=== PATIENT | female | born 1995 | race Caucasian/White ===

== ENCOUNTER 2018-05-05 20:10 | Emergency (ER) | payer OTHER ==
[2018-05-05] MEDS ORDERED: LORazepam 0.5 MG Tab PO ONE ×2 (20:11→21:04)
[2018-05-05 21:08] LABS: CHLORIDE,CL 101 mmol/L (101-111); SODIUM,NA 136 mmol/L (135-145)
--- NOTE | 2018-05-05 21:24 | EDM.PDOC ---
ED HPI GENERAL MEDICAL PROBLEM - General Chief Complaint: General Stated Complaint: RAPID HEATRATE AND ANXIETY [id number] Time Seen by Provider: 05/05/18 20:28 Source of Information: Reports: Patient History Limitations: Reports: No Limitations - History of Present Illness INITIAL COMMENTS - FREE TEXT/NARRATIVE: This 22 yo female patient reports to the ED with increased anxiety and sensations of heart palpitations since 1430 today. The patient reports that she does not know of any events leading up to increased anxiety. The patient reports that she is on Prozac and has been taking it for the past 3 weeks, but does not think it is doing any good. The patient reports that she has not had a follow-up with her primary care facility yet. The patient reports that she did drink last night, but denies drug use. The patient reports she has not had increased caffeine intake today or energy drinks. The patient does not believe that she is (is on control). The patient reports that she has not been sick lately. The patient denies any nausea/vomiting or diarrhea. Onset: Today Onset Date: 05/05/18 Onset Time: 14:30 Duration: Constant Location: Reports: Chest, Generalized Quality: Reports: Other Severity: Moderate Improves with: Reports: None Worsens with: Reports: None Associated Symptoms: Reports: No Other Symptoms - Related Data Allergies Allergy/AdvReac Type Severity Reaction Status Date / Time No Known Allergies Allergy Verified 05/05/18 20:26 Home Meds: Home Meds FLUoxetine [PROzac] 10 mg PO DAILY 05/05/18 [History] Past Medical History - Past Surgical History Other Musculoskeletal Surgeries/Procedures:: bileteral foot surgery Social & Family History - Tobacco Use Smoking Status *Q: Never Smoker Second Hand Smoke Exposure: No - Caffeine Use Caffeine Use: Reports: None - Alcohol Use Date of Last Drink: 05/04/18 ED ROS GENERAL - Review of Systems Review Of Systems: ROS reveals no pertinent complaints other than HPI. ED EXAM, GENERAL - Physical Exam Exam: See Below Exam Limited By: No Limitations General Appearance: Alert, WD/WN, Anxious, Thin Eye Exam: Bilateral Eye: EOMI, Normal Inspection, PERRL Ears: Normal External Exam, Normal Canal, Hearing Grossly Normal, Normal TMs Nose: Normal Inspection, Normal Mucosa, No Blood Throat/Mouth: Normal Inspection, Normal Lips, Normal Teeth, Normal Gums, Normal Oropharynx, Normal Voice, No Airway Compromise Head: Atraumatic, Normocephalic Neck: Normal Inspection, Supple, Non-Tender, Full Range of Motion Respiratory/Chest: No Respiratory Distress, Lungs Clear, Normal Breath Sounds, No Accessory Muscle Use, Chest Non-Tender Cardiovascular: Normal Peripheral Pulses, Regular Rate, Rhythm, No Edema, No Gallop, No JVD, No Murmur, No Rub GI/Abdominal: Normal Bowel Sounds, Soft, Non-Tender, No Organomegaly, No Distention, No Abnormal Bruit, No Mass (Female) Exam: Deferred Rectal (Female) Exam: Deferred Back Exam: Normal Inspection, Full Range of Motion, NT Extremities: Normal Inspection, Normal Range of Motion, Non-Tender, Normal Capillary Refill, No Pedal Edema Neurological: Alert, Oriented, CN II-XII Intact, Normal Cognition, Normal Gait, Normal Reflexes, No Motor/Sensory Deficits Psychiatric: Anxious Skin Exam: Warm, Dry, Intact, Normal Color, No Rash Lymphatic: No Adenopathy Course - Vital Signs Last Recorded V/S: Last Vital Signs Temp 36.9 C 05/05/18 20:17 Pulse 98 05/05/18 20:17 Resp 18 05/05/18 20:17 BP 138/84 05/05/18 20:17 Pulse Ox 100 05/05/18 20:17 - Orders/Labs/Meds Orders: Active Orders 24 hr Category Date Time Status DRUG SCREEN URINE BIORAD [URCHEM] Stat Lab 05/05/18 20:34 Ordered HCG QUALITATIVE,URINE [URCHEM] Stat Lab 05/05/18 20:34 Ordered UA W/MICROSCOPIC [URIN] Stat Lab 05/05/18 20:34 Ordered Labs: Laboratory Tests 05/05/18 05/05/18 05/05/18 Range/Units 20:40 20:40 20:50 WBC 9.3 (5.0-10.0) 10^3/uL RBC 4.36 (4.2-5.4) 10^6/uL Hgb 13.6 (12.0-16.0) g/dL Hct 39.9 (37.0-47.0) % MCV 91.5 (80-100) fL MCH 31.2 (27.0-34.0) pg MCHC 34.1 (33.0-35.0) g/dL Plt Count 293 (150-450) 10^3/uL Neut % (Auto) 81.2 H (42.2-75.2) % Lymph % (Auto) 13.3 L (20.5-50.1) % [place] % (Auto) 5.0 (2-8) % Eos % (Auto) 0.3 L (1.0-3.0) % Baso % (Auto) 0.2 (0.0-1.0) % Sodium 136 (135-145) mmol/L Potassium 3.9 (3.6-5.0) mmol/L Chloride 101 (101-111) mmol/L Carbon Dioxide 25.0 (21.0-31.0) mmol/L Anion Gap 13.9 BUN 6 L (7-18) mg/dL Creatinine 0.6 (0.6-1.3) mg/dL Est Cr Clr Drug Dosing 119.06 mL/min Estimated GFR (MDRD) > 60 BUN/Creatinine Ratio 10.00 Glucose 86 (74-105) mg/dL Calcium 9.4 (8.4-10.2) mg/dl Total Bilirubin 0.7 (0.2-1.0) mg/dL AST 29 (10-42) IU/L ALT 22 (10-60) IU/L Alkaline Phosphatase 53 (42-121) IU/L Total Protein 7.1 (6.7-8.2) g/dl Albumin 4.4 (3.2-5.5) g/dl Globulin 2.7 Albumin/Globulin Ratio 1.63 Urine Color Light yellow (YELLOW) Urine Appearance Clear (CLEAR) Urine pH 6.5 (5.0-9.0) Ur Specific Willis <= 1.005 (1.005-1.030) Urine Protein Negative (NEGATIVE) Urine Glucose (UA) Negative (NEGATIVE) Urine Ketones Negative (NEGATIVE) Urine Occult Blood Trace-lysed H (NEGATIVE) Urine Nitrite Negative (NEGATIVE) Urine Bilirubin Negative (NEGATIVE) Urine Urobilinogen 0.2 (0.2-1.0) mg/dL Ur Leukocyte Esterase Trace H (NEGATIVE) Urine RBC 0-5 /HPF Urine WBC 0-5 (0-5/HPF) /HPF Ur Epithelial Cells Occasional /HPF Urine Bacteria Few (0-FEW/HPF) /HPF Urine HCG, Qual Urine Opiates Screen (NEGATIVE) Ur Oxycodone Screen (NEGATIVE) Urine Methadone Screen (NEGATIVE) Ur Barbiturates Screen (NEGATIVE) U Tricyclic Antidepress (NEGATIVE) Ur Phencyclidine Scrn (NEGATIVE) Ur Amphetamine Screen (NEGATIVE) U Methamphetamines Scrn (NEGATIVE) Urine MDMA Screen (NEGATIVE) U Benzodiazepines Scrn (NEGATIVE) Urine Cocaine Screen (NEGATIVE) U Marijuana (THC) Screen (NEGATIVE) 05/05/18 05/05/18 Range/Units 20:50 20:50 WBC (5.0-10.0) 10^3/uL RBC (4.2-5.4) 10^6/uL Hgb (12.0-16.0) g/dL Hct (37.0-47.0) % MCV (80-100) fL MCH (27.0-34.0) pg MCHC (33.0-35.0) g/dL Plt Count (150-450) 10^3/uL Neut % (Auto) (42.2-75.2) % Lymph % (Auto) (20.5-50.1) % [place] % (Auto) (2-8) % Eos % (Auto) (1.0-3.0) % Baso % (Auto) (0.0-1.0) % Sodium (135-145) mmol/L Potassium (3.6-5.0) mmol/L Chloride (101-111) mmol/L Carbon Dioxide (21.0-31.0) mmol/L Anion Gap BUN (7-18) mg/dL Creatinine (0.6-1.3) mg/dL Est Cr Clr Drug Dosing mL/min Estimated GFR (MDRD) BUN/Creatinine Ratio Glucose (74-105) mg/dL Calcium (8.4-10.2) mg/dl Total Bilirubin (0.2-1.0) mg/dL AST (10-42) IU/L ALT (10-60) IU/L Alkaline Phosphatase (42-121) IU/L Total Protein (6.7-8.2) g/dl Albumin (3.2-5.5) g/dl Globulin Albumin/Globulin Ratio Urine Color (YELLOW) Urine Appearance (CLEAR) Urine pH (5.0-9.0) Ur Specific Willis (1.005-1.030) Urine Protein (NEGATIVE) Urine Glucose (UA) (NEGATIVE) Urine Ketones (NEGATIVE) Urine Occult Blood (NEGATIVE) Urine Nitrite (NEGATIVE) Urine Bilirubin (NEGATIVE) Urine Urobilinogen (0.2-1.0) mg/dL Ur Leukocyte Esterase (NEGATIVE) Urine RBC /HPF Urine WBC (0-5/HPF) /HPF Ur Epithelial Cells /HPF Urine Bacteria (0-FEW/HPF) /HPF Urine HCG, Qual Negative Urine Opiates Screen Negative (NEGATIVE) Ur Oxycodone Screen Negative (NEGATIVE) Urine Methadone Screen Negative (NEGATIVE) Ur Barbiturates Screen Negative (NEGATIVE) U Tricyclic Antidepress Negative (NEGATIVE) Ur Phencyclidine Scrn Negative (NEGATIVE) Ur Amphetamine Screen Negative (NEGATIVE) U Methamphetamines Scrn Negative (NEGATIVE) Urine MDMA Screen Negative (NEGATIVE) U Benzodiazepines Scrn Negative (NEGATIVE) Urine Cocaine Screen Negative (NEGATIVE) U Marijuana (THC) Screen Negative (NEGATIVE) Meds: Medications Discontinued Medications Generic Name Dose Route Start Last Admin Trade Name Freq PRN Reason Stop Dose Admin Lorazepam 0.5 mg 05/05/18 21:04 05/05/18 21:08 Ativan PO 05/05/18 21:05 0.5 mg ONETIME ONE Administration Departure - Departure Time of Disposition: 22:01 Disposition: Home, Self-Care 01 Condition: Fair Clinical Impression: Anxiety - Discharge Information Instructions: Panic Attack, [id number] Forms: ED Department Discharge Care Plan Goals: The patient was advised of the examination and lab results during the visit. The patient as given an oral dose of Ativan while in the ED with some decrease in symptoms. The patient was discharged with Ativan (0.5 mg) #2 to take 1 by mouth every 6 hours as needed for anxiety. If the patient has any additional symptoms or concerns, the patient should follow-up with her primary care facility or return to the emergency department. - My Orders Last 24 Hours: My Active Orders 05/05/18 20:34 DRUG SCREEN URINE BIORAD [URCHEM] Stat HCG QUALITATIVE,URINE [URCHEM] Stat UA W/MICROSCOPIC [URIN] Stat - Assessment/Plan Last 24 Hours: My Active Orders 05/05/18 20:34 DRUG SCREEN URINE BIORAD [URCHEM] Stat HCG QUALITATIVE,URINE [URCHEM] Stat UA W/MICROSCOPIC [URIN] Stat
[2018-05-05] MEDS ORDERED: LORazepam 0.5 MG Tab ONE (22:08)
== END 2018-05-05 22:16 | disposition home or self-care (01) ==
LOC: DL.ED 20:10
DX: F41.9 Anxiety disorder, unspecified (principal)
CPT/HCPCS: 36415; 80053; 80305; 81001; 81025; 85025; 99284; A9270

== ENCOUNTER → 2019-05-19 | Outpatient (CLI) | payer BC | LOC: DL.MRI 09:38 | PROVIDERS: ATTEND Nurse Practitioner Family | DX: M25.562 Pain in left knee (principal); M25.462 Effusion, left knee; M22.42 Chondromalacia patellae, left knee; M67.864 Other specified disorders of tendon, left knee | CPT/HCPCS: 73721-LT ==

== ENCOUNTER 2021-03-26 17:04 | Inpatient (IN) | payer BC ==
[2021-03-26] MEDS: Lactated Ringers 1,000 ML IV SCH (18:00)
[2021-03-26] MEDS ORDERED: Misoprostol 400 MCG (4 X 100 MCG TAB) RECTAL PRN (18:01)
[2021-03-26] MEDS ORDERED: Ondansetron 4 MG/2 ML SDV IVPUSH PRN (18:01)
[2021-03-26] MEDS ORDERED: Methylergonovine 0.2 MG/1 ML Amp IM PRN (18:01)
[2021-03-26] MEDS ORDERED: Sodium Chloride 0.9% 10 ML Syringe FLUSH PRN (18:01)
[2021-03-26] MEDS ORDERED: Tranexamic Acid 1,000 MG in Sodium Chloride 0.9% 100 ML IV PRN (18:01)
[2021-03-26] MEDS ORDERED: Butorphanol 2 MG/ML SDV IVPUSH PRN (18:01)
[2021-03-26] MEDS ORDERED: fentaNYL 100 MCG/2 ML SDV IVPUSH PRN (18:01)
[2021-03-26] MEDS ORDERED: Lactated Ringers 1,000 ML IV ONE (18:01)
[2021-03-26] MEDS ORDERED: Carboprost Tromethamine 250 MCG/1 ML Amp IM PRN (18:01)
[2021-03-26] MEDS ORDERED: Lidocaine 1% 30 ML SDV INJECT PRN (18:01)
[2021-03-26] MEDS ORDERED: Nalbuphine 10 MG/1 ML Vial IV PRN (18:04)
[2021-03-26] MEDS ORDERED: Nalbuphine 10 MG/1 ML Vial IM PRN (18:04)
[2021-03-26] MEDS ORDERED: Magnesium Sulfate/Water 4 GM/100 ML BAG IV ONE (18:53)
[2021-03-26] MEDS ORDERED: EPINEPHrine 1 MG/1 ML Amp ONE ×2 (19:00→19:35)
[2021-03-26] MEDS ORDERED: Sodium Chloride 0.9% 20 ML SDV ONE (19:00)
[2021-03-26] MEDS ORDERED: Sodium Bicarbonate 4.2% 2.5 MEQ/5 ML SDV ONE ×2 (19:00→19:35)
[2021-03-26] MEDS ORDERED: fentaNYL 100 MCG/2 ML SDV ITHECAL ONE (19:00)
[2021-03-26] MEDS ORDERED: Magnesium Sulfate/Water 4 GM/100 ML BAG ONE (19:05)
[2021-03-26] MEDS ORDERED: fentaNYL 100 MCG/2 ML SDV ONE (19:34)
[2021-03-26] MEDS: Magnesium Sulfate/Water 20 GM/500 ML BAG IV SCH (19:35)
--- NOTE | 2021-03-26 20:00 | PCM.SN.2 ---
- Free Text/Narrative Note: Intrathecal. Sitting position, sterile prep and drape. 1% lidocaine w bicarb for skinwheal to L2 L3 interspace. Introducer, 24 ga pencan x 1. Pos CSF, neg heme, neg parasthesia. 0.1 ml pf 1:1000 epi, 20 mcg pf sufenta, 30 mcg pf fentanyl, 0.4 ml pf NS and 6 mg of 0.75% pf Marcaine injected after CSF aspiration. Pt to L lateral position. Procedure time 1929 to 1999
--- NOTE | 2021-03-26 22:24 | HP ---
PRIMARY OB PROVIDER: Dr. Zimmerman. HISTORY OF PRESENT ILLNESS/CHIEF COMPLAINT: Elizabeth Wilcox is a 25-year- old female, G1, P0 at 40 weeks 2 days gestation based upon ultrasound on 10/27/2020 who presents in active labor. She reports that she felt regular contractions starting around 5 p.m. She has lower abdominal pain and back pain associated with her contractions. She denies any visual changes, headaches, fevers, chills, nausea, vomiting, chest pain, shortness of breath, increasing abdominal pain, paresthesias, weakness. She has had bilateral lower leg swelling during this . PRENTAL LABS: Blood group type is A positive with a negative antibody screen. Serology (RPR/syphilis) is nonreactive. Rubella immune. Hepatitis B surface antigen was negative. Hepatitis C nonreactive. HIV negative. Gonorrhea and chlamydia are negative. GBS status negative. PAST MEDICAL HISTORY: Anxiety. PAST SURGICAL HISTORY: Noncontributory. PRIOR TO ADMISSION MEDICATIONS: Iron supplements 325, vitamins daily. ALLERGIES: Denies any current allergies. SOCIAL HISTORY: Denies tobacco, alcohol, drug use during . FAMILY HISTORY: Noncontributory. REVIEW OF SYSTEMS: See HPI for pertinent positives and negatives. PHYSICAL EXAMINATION: Admission Vitals Signs: T afebrile, P 76, BP 170/103, respirating on room air. General Appearance: Alert, well appearing, no apparent distress. Lungs: Clear to auscultation. No wheezes. Symmetric air entry. Heart: Regular rate and rhythm, no murmurs. Neurologic: Cranial nerves 2 through 12 grossly intact. Negative Babinski sign bilaterally. Absent clonus present in bilateral ankles. [employer]ing [employer] strength normal bilaterally. FHT: Category 1, baseline 150, accelerations present, decelerations absent. [place]: Rhonda regularly every 4 to 5 minutes. Pelvic: Initial pelvic exam was 4 cm dilated, station +1, thin cervix. Extremities: Mild edema present bilaterally. LABORATORY DATA: Hematology: WBC 13.5, RBC 4.11, HGB 12.9, HCT 38.1, platelet count 174. Chemistry: BUN 12, creatinine 0.70, estimated GFR greater than 60, uric acid 4.8, magnesium 1.7, AST 21, ALT 23, LDH 190. Urine protein 100, urine glucose negative, urine ketones negative, urine nitrites negative. Urine random total protein 45.6, protein/creatinine ratio 2982.3. Serology: COVID negative. Artifical rupture of membranes: Meconium-stained fluid present upon artificial rupture of membranes. Around 200 mL of meconium-stained fluid was visualized. ASSESSMENT AND PLAN: Elizabeth Wilcox is a 25-year-old, G1, P0 female at 40 weeks 2 days gestation, admitted for active labor. She has increased blood pressures ranging in the 180 systolics and 100s diastolics. With concerns for elevated blood pressures and protein in the urine, diagnosis of preeclampsia with severe features is made. We will start magnesium per protocol for seizure prophylaxis. For pain, the patient would like intrathecal. In the meantime, 20 mg IM of Nubain will be given. We will continue to monitor blood pressures and concerning physical exam findings. We will continue to monitor progression of labor. STARLA SantiagoII [facility] /[id number] Agree with student assessment and plan. Patient was examined by me, and the assessment and plan are per my direction. Any changes above were made to reflect my observations and opinions. Dr. Izzy Zimmerman [facility]
[2021-03-27] MEDS: Oxytocin/Normal Saline 30 UNIT/500 ML BAG IV SCH ×2 (00:51→01:30)
[2021-03-27] MEDS ORDERED: Morphine 2 MG/ML SYRINGE ONE (00:55)
[2021-03-27] MEDS ORDERED: ceFAZolin 2 GM in Sodium Chloride 0.9% 50 ML IV STA (01:39)
[2021-03-27] MEDS ORDERED: Oxytocin 10 Units/1 ML SDV IM PRN (02:20)
[2021-03-27] MEDS ORDERED: Benzocaine/Menthol 20%-0.5% Spray 56 GM Canister TOP PRN (02:20)
[2021-03-27] MEDS ORDERED: Simethicone 80 MG Tab.Chew PO PRN (02:20)
--- NOTE | 2021-03-27 02:54 | PCM.DEL ---
L & D Note - General Info Date of Service: 03/27/21 Mother's Due Date: 03/24/21 - Delivery Note Labor: Spontaneous Delivery Outcome: Livebirth Infant Delivery Method: Spontaneous Vaginal Delivery-Single Infant Delivery Mode: Vacuum Extraction Presentation: Vertex (Asynclitic) Nuchal Cord: None Anesthesia Type: Intrathecal Amniotic Fluid Description: Meconium Stained Episiotomy Type: None Laceration: 2nd Degree, Vaginal (Left) Suture size: 3-0 Placenta: Manual Removal, Retained Cord: 3 Vessels Estimated Blood Loss: 850 Resuscitation Needed: Yes [place]: Bulb Syringe, Stimulated, Warmed Provider: Izzy Zimmerman Post Delivery Events: Retained Placenta Delivery Comments (Free Text/Narrative):: 25-year-old at 40w2d presented to L&D in active labor. Upon arrival, patient's blood pressure was noted to be significantly elevated. PIH labs were significant for PCR of 2.89. Remainder of labs were unremarkable. Patient was started on IV magnesium sulfate. She was noted to be 4/90/0. AROM was performed for moderate amount of meconium stained fluid. Nubain and an intrathecal were given for pain control. Patient progressed appropriately through the first stage of labor. at 2230, she was noted to have an anterior lip. A trial push was done, and the lip was successfully reduced. Patient pushed with excellent progression initially; however after about 45 minutes of pushing, it was determined that baby was in OP position. A trial of pushing on patient's left side was attempted with little change. Due to patient's excellent pushing and baby's +2 station, the decision was made to proceed with vacuum assisted vaginal delivery. Low-profile Kiwi vacuum was applied. Good movement of the head was noted. There was one pop-off. Due to baby's position, a mushroom Kiwi was then used; however, the vacuum could not maintain suction and slid off the head three times without a true pop-off. Patient then pushed for 3 contractions without use of the vacuum with good progression of the head. Then progression again slowed so the low-profile was reapplied for another 3 contractions. A second pop-off occurred. head was noted to be at the perineum during contractions and pushing but would receded back into the vagina in between contractions. Dr. Carol Rowley was consulted for a 2nd opinion and agreed with continuing with vacuum delivery. Patient continued to push with 3 contractions with the low-profile vacuum in place. There was a 3rd pop-off; however, as the head was partially out of the canal, the decision was made to proceed with VAVD. A tight band of tissue near the opening of the vagina was cut during the next contraction. Patient pushed well and delivered a viable female with Apgars of 8 and 9 at 1 and 5 minutes respectively. Baby was placed on the mother's chest. Cord was clamped x2 and cut. Cord blood was collected. A left vaginal laceration was repaired with a running, locked suture. Due to another patient emergency, I stepped out of the room and left Waleska Wallace MS3 to remove the placenta. After about 15 minutes, I was able to return to the patient's room. The placenta had not showed any signs of releasing from the uterus. Continued cord traction and aggressive uterine massage was performed with no success. At the 20 minute tristan, an internal uterine exam was performed and the placenta was noted to be anterior and adherent to the uterine wall. The edges of the placenta were "teased" from the uterine wall. The placenta was manually removed and was noted to be incomplete. Repeat manual intrauterine exam was performed and another large piece of placenta and membranes was manually removed. Residual retained membranes were felt on repeat examination. Dr. Rowley was called back to the exam room for possible bedside D&C. Patient was given 2 mg IV morphine. Manual removal of the placental fragments using 2 opened 4x4 gauze sponges was performed. Patient was given TXA and hemabate as well as bolusing the pitocin. Uterus appeared clean from retained placenta on repeat examination, and uterine tone improved significantly. Patient tolerated the above procedures well. Vacuum Extractor Progress Note - Alternative Labor Strategies Considered Alternative Labor Strategies Considered:: Reports: Yes Strategies Considered:: Reports: Contraction Intensity Adequate, Position Changes Used to Facilitate Rotation & Descent, Empty Bladder, Rest Indications Considered:: Reports: Yes Indications:: Reports: Prolonged 2nd Stage, Shortening of 2nd Stage for Maternal Benefit - Patient Prepared Patient Prepared:: Reports: Yes Informed Consent:: Reports: Verbal Risks: Reports: Yes Risks Include:: Reports: Laceration, Maternal Injury Anesthesia/Analgesia Adequate:: Reports: Yes - Probability of Success High Probability of Success:: Reports: Yes Weight Estimated:: Reports: AGA Patient Diabetic:: Reports: No Pelvis Adequate:: Reports: Yes Position:: OP Station:: 2-3+ - Application Time Type of Vacuum Used:: Reports: Low profile, Cup: Gilman type Vacuum Extraction: Successful - Exit Strategy Exit strategy available:: Reports: Yes and resuscitation teams readily available:: Reports: Yes - General Info Date of Service: 03/27/21 - Patient Data Vitals - Most Recent: Last Vital Signs Temp 37.1 C 03/26/21 20:00 Pulse 90 03/26/21 21:00 Resp 16 03/26/21 21:00 BP 140/85 03/26/21 21:00 Pulse Ox Weight - Most Recent: 68.946 kg I&O - Last 24 Hours: Intake & Output 03/26/21 03/26/21 03/27/21 14:59 22:59 06:59 Intake Total 100 Balance 100 Lab Results Last 24 Hours: Laboratory Results - last 24 hr 03/26/21 03/26/21 03/26/21 Range/Units 17:50 18:01 18:01 WBC 13.5 H (5.0-10.0) 10^3/uL RBC 4.11 L (4.2-5.4) 10^6/uL Hgb 12.9 (12.0-16.0) g/dL Hct 38.1 (37.0-47.0) % MCV 92.7 (80-100) fL MCH 31.4 (27.0-34.0) pg MCHC 33.9 (33.0-35.0) g/dL Plt Count 174 D (150-450) 10^3/uL BUN 12 (7-18) mg/dL Creatinine 0.70 (0.55-1.02) mg/dL Est Cr Clr Drug Dosing TNP Estimated GFR (MDRD) > 60 Uric Acid 4.8 (2.6-6.0) mg/dL Magnesium (1.8-2.4) mg/dL AST 21 (15-37) U/L ALT 23 (14-59) U/L Lactate Dehydrogenase 190 (81-234) U/L Urine Color (YELLOW) Urine Appearance (CLEAR) Urine pH (5.0-9.0) Ur Specific [address] (1.005-1.030) Urine Protein (NEGATIVE) Urine Glucose (UA) (NEGATIVE) Urine Ketones (NEGATIVE) Urine Occult Blood (NEGATIVE) Urine Nitrite (NEGATIVE) Urine Bilirubin (NEGATIVE) Urine Urobilinogen (0.2-1.0) mg/dL Ur Leukocyte Esterase (NEGATIVE) Ur Random Creatinine (No establ ref range) mg/dL U Random Total Protein (0.0-11.9) mg/dL Protein/Creatinin Ratio (<150.0) mg/g SARS-CoV-2 RNA (ALEXI) Negative (NEGATIVE) 03/26/21 03/26/21 03/26/21 Range/Units 18:01 18:17 18:17 WBC (5.0-10.0) 10^3/uL RBC (4.2-5.4) 10^6/uL Hgb (12.0-16.0) g/dL Hct (37.0-47.0) % MCV (80-100) fL MCH (27.0-34.0) pg MCHC (33.0-35.0) g/dL Plt Count (150-450) 10^3/uL BUN (7-18) mg/dL Creatinine (0.55-1.02) mg/dL Est Cr Clr Drug Dosing Estimated GFR (MDRD) Uric Acid (2.6-6.0) mg/dL Magnesium 1.7 L (1.8-2.4) mg/dL AST (15-37) U/L ALT (14-59) U/L Lactate Dehydrogenase (81-234) U/L Urine Color Light yellow (YELLOW) Urine Appearance Slightly cloudy (CLEAR) Urine pH 6.5 (5.0-9.0) Ur Specific [address] 1.015 (1.005-1.030) Urine Protein 100 H (NEGATIVE) Urine Glucose (UA) Negative (NEGATIVE) Urine Ketones Negative (NEGATIVE) Urine Occult Blood Large H (NEGATIVE) Urine Nitrite Negative (NEGATIVE) Urine Bilirubin Negative (NEGATIVE) Urine Urobilinogen 0.2 (0.2-1.0) mg/dL Ur Leukocyte Esterase Negative (NEGATIVE) Ur Random Creatinine 15.29 (No establ ref range) mg/dL U Random Total Protein 45.6 H (0.0-11.9) mg/dL Protein/Creatinin Ratio 2982.3 H (<150.0) mg/g SARS-CoV-2 RNA (ALEXI) (NEGATIVE) Med Orders - Current: Current Medications Acetaminophen (Acetaminophen 325 Mg Tab) 650 mg PO Q4H PRN PRN Reason: Pain (Mild 1-3) and fever Benzocaine/Menthol (Benzocaine/Menthol 20%-0.5% [place] 56 Gm Canister) 0 gm TOP Q4H PRN PRN Reason: Perineal comfort measures Carboprost Tromethamine (Carboprost Tromethamine 250 Mcg/1 Ml Amp) 250 mcg IM ASDIRECTED PRN PRN Reason: HEMORRHAGE Docusate Sodium (Docusate Sodium 100 Mg Cap) 100 mg PO BID PRN PRN Reason: Constipation Lactated Ringer's (Ringers, Lactated) 1,000 mls @ 125 mls/hr IV ASDIRECTED [facility] Last Admin: 03/26/21 18:00 Dose: 125 mls/hr Documented by: Tranexamic Acid 1,000 mg/ (Sodium Chloride) 110 mls @ 660 mls/hr IV ONETIME PRN PRN Reason: Bleeding Last Admin: 03/27/21 00:55 Dose: 660 mls/hr Documented by: Oxytocin/Sodium Chloride (Pitocin In Ns 30 Unit/500 Ml) 30 unit in 500 mls @ 2 mls/hr IV TITRATE [facility]; Protocol Last Admin: 03/27/21 01:30 Dose: 125 munits/min, 125 mls/hr Documented by: Magnesium Sulfate (Magnesium Sulfate In Water 20 Gm/500 Ml) 20 gm in 500 mls @ 50 mls/hr IV ASDIRECTED [facility] Last Admin: 03/26/21 19:35 Dose: 50 mls/hr Documented by: Ibuprofen (Ibuprofen 800 Mg Tab) 800 mg PO Q8H PRN PRN Reason: Pain Methylergonovine Maleate (Methylergonovine 0.2 Mg/1 Ml Amp) 0.2 mg IM ASDIRECTED PRN PRN Reason: Hemorrhage Misoprostol (Misoprostol 400 Mcg (4 X 100 Mcg Tab)) 800 mcg RECTAL ASDIRECTED PRN PRN Reason: Hemorrhage Ondansetron HCl (Ondansetron 4 Mg/2 Ml Sdv) 4 mg IVPUSH Q4H PRN PRN Reason: Nausea/Vomiting Oxytocin (Oxytocin 10 Units/1 Ml Sdv) 10 unit IM ONETIME PRN PRN Reason: Bleeding Prenat Multivit/Pathology Laboratory Aides Teacher/Iron/Folic Ac ( Multivitamin With Calcium/Folic Acid/Iron Tab) 1 each PO DAILY TIMO Simethicone (Simethicone 80 Mg Tab.Chew) 80 mg PO Q4H PRN PRN Reason: Gas Sodium Chloride (Sodium Chloride 0.9% 10 Ml Syringe) 10 ml FLUSH ASDIRECTED PRN PRN Reason: Keep Vein Open Discontinued Medications Butorphanol Tartrate (Butorphanol 2 Mg/Ml Sdv) 0.5 mg IVPUSH Q3H PRN PRN Reason: Pain Epinephrine HCl (Epinephrine 1 Mg/1 Ml Amp) Confirm Administered Dose 1 mg .ROUTE .STK-MED ONE Stop: 03/26/21 19:36 Fentanyl (Fentanyl 100 Mcg/2 Ml Sdv) 100 mcg IVPUSH Q1H PRN PRN Reason: Pain (moderate 4-6) Fentanyl (Fentanyl 100 Mcg/2 Ml Sdv) Confirm Administered Dose 100 mcg .ROUTE .STK-MED ONE Stop: 03/26/21 19:35 Lactated Ringer's (Ringers, Lactated) 1,000 mls @ 999 mls/hr IV BOLUS ONE Stop: 03/26/21 19:01 Last Admin: 03/26/21 20:10 Dose: 50 mls/hr Documented by: Magnesium Sulfate (Magnesium Sulfate In Water 4 Gm/100 Ml) 4 gm in 100 mls @ 300 mls/hr IV ONETIME ONE Stop: 03/26/21 19:12 Last Admin: 03/26/21 20:20 Dose: Not Given Documented by: Magnesium Sulfate (Magnesium Sulfate In Water 4 Gm/100 Ml) Confirm Administered Dose 4 gm in 100 mls @ as directed .ROUTE .STReally [employer]-MED ONE Stop: 03/26/21 19:06 Last Admin: 03/26/21 19:12 Dose: 300 mls/hr Documented by: Cefazolin Sodium 2 gm/ Sodium (Chloride) 50 mls @ 100 mls/hr IV ONETIME STA Stop: 03/27/21 02:08 Lidocaine HCl (Lidocaine 1% 30 Ml Sdv) 30 ml INJECT ASDIRECTED PRN PRN Reason: Perineal Repair Morphine Sulfate (Morphine 2 Mg/Ml Syringe) Confirm Administered Dose 2 mg .ROUTE .STK-MED ONE Stop: 03/27/21 00:56 Last Admin: 03/27/21 00:57 Dose: 2 mg Documented by: Nalbuphine HCl (Nalbuphine 10 Mg/1 Ml Vial) 20 mg IM Q3H PRN PRN Reason: Pain Last Admin: 03/26/21 19:26 Dose: 20 mg Documented by: Nalbuphine HCl (Nalbuphine 10 Mg/1 Ml Vial) 10 mg IV Q3H PRN PRN Reason: Pain Sodium Bicarbonate (Sodium Bicarbonate 4.2% 2.5 Meq/5 Ml Sdv) Confirm Administered Dose 2.5 meq .ROUTE .STK-MED ONE Stop: 03/26/21 19:36 Sufentanil Citrate (Sufentanil 50 Mcg/1 Ml Amp) Confirm Administered Dose 50 mcg .ROUTE .STK-MED ONE Stop: 03/26/21 19:36 - Problem List & Annotations (1) Severe pre-eclampsia SNOMED Code(s): 39236950 Code(s): O14.10 - SEVERE PRE-ECLAMPSIA, UNSPECIFIED TRIMESTER Status: Acute Current Visit: Yes (2) Retained placenta or membranes SNOMED Code(s): 470722008 Code(s): O73.1 - RETAINED PORTIONS OF PLACENTA AND MEMBRANES, W/O HEMORRHAGE Status: Acute Current Visit: Yes (3) care in third trimester SNOMED Code(s): 426578581, 16723243, 40058943, 522792824, 388758033 Code(s): Z34.93 - ENCNTR FOR SUPRVSN OF NORMAL PREG, UNSP, THIRD TRIMESTER Status: Acute Current Visit: Yes (4) Anxiety SNOMED Code(s): 08155786 Code(s): F41.9 - ANXIETY DISORDER, UNSPECIFIED Status: Acute Current Visit: No (5) hemorrhage SNOMED Code(s): 85493093 Code(s): O72.1 - OTHER IMMEDIATE HEMORRHAGE Status: Acute Current Visit: Yes (6) Vacuum-assisted vaginal delivery SNOMED Code(s): 90714713161731115 Code(s): Z37.9 - OUTCOME OF DELIVERY, UNSPECIFIED Status: Acute Current Visit: Yes - Problem List Review Problem List Initiated/Reviewed/Updated: Yes - My Orders Last 24 Hours: My Active Orders 03/26/21 18:01 Patient Status [ADT] Routine Notify Provider Vital Signs OB [RC] ASDIRECTED Acetaminophen [TylenoL] 650 mg PO Q4H PRN Carboprost Tromethamine [Hemabate DS] 250 mcg IM ASDIRECTED PRN Methylergonovine [Methergine] 0.2 mg IM ASDIRECTED PRN Ondansetron [Zofran] 4 mg IVPUSH Q4H PRN Sodium Chloride 0.9% [Saline Flush] 10 ml FLUSH ASDIRECTED PRN Tranexamic Acid [Cyklokapron] 1,000 mg Sodium Chloride 0.9% [Normal Saline] 100 ml IV ONETIME miSOPROStoL [Cytotec] 800 mcg RECTAL ASDIRECTED PRN Saline Lock Insert [OM.PC] Routine Resuscitation Status Routine 03/26/21 18:15 Lactated Ringers [Ringers, Lactated] 1,000 ml IV ASDIRECTED Oxytocin/Normal Saline [Pitocin in NS 30 UNIT/500 ML] 30 unit in 500 ml IV TITRATE 03/26/21 18:51 Bedrest [RC] ASDIRECTED Seizure Precautions [OM.PC] Stat 03/26/21 19:00 Blood Pressure [OM.PC] Q30M Deep Tendon Reflexes [WOMSER] Q2H 03/26/21 19:15 Magnesium Sulfate/Water [Magnesium Sulfate in Water 20 GM/500 ML] 20 gm in 500 ml IV 50 mls/hr 03/26/21 19:30 Blood Pressure [OM.PC] Q30M 03/26/21 20:00 Blood Pressure [OM.PC] Q30M 03/26/21 20:30 Blood Pressure [OM.PC] Q30M 03/26/21 21:00 Blood Pressure [OM.PC] Q30M Deep Tendon Reflexes [WOMSER] Q2H 03/26/21 21:30 Blood Pressure [OM.PC] Q30M 03/26/21 22:00 Blood Pressure [OM.PC] Q30M 03/26/21 22:30 Blood Pressure [OM.PC] Q30M 03/26/21 23:00 Blood Pressure [OM.PC] Q30M Deep Tendon Reflexes [WOMSER] Q2H 03/26/21 23:30 Blood Pressure [OM.PC] Q30M 03/27/21 00:00 Blood Pressure [OM.PC] Q30M 03/27/21 00:30 Blood Pressure [OM.PC] Q30M 03/27/21 01:00 Blood Pressure [OM.PC] Q30M Deep Tendon Reflexes [WOMSER] Q2H 03/27/21 01:30 Blood Pressure [OM.PC] Q30M 03/27/21 02:00 Blood Pressure [OM.PC] Q30M 03/27/21 02:20 Up ad Maggie [RC] ASDIRECTED Vital Signs [RC] PFP Consult to Field Attendant [CONS] Routine Benzocaine/Menthol [Dermoplast Pain Relief [place]] See Dose Instructions TOP Q4H PRN Docusate Sodium [Colace] 100 mg PO BID PRN Ibuprofen [Motrin] 800 mg PO Q8H PRN Oxytocin [Pitocin] 10 unit IM ONETIME PRN Simethicone 80 mg PO Q4H PRN Assess Lochia [WOMSER] Per Unit Routine Assess Uterine Involution [WOMSER] Per Unit Routine Breast Pump [WOMSER] Per Unit Routine Ice Therapy [OM.PC] Per Unit Routine Perineal Care [OM.PC] Per Unit Routine Sitz Bath [OM.PC] Per Unit Routine 03/27/21 02:30 Blood Pressure [OM.PC] Q30M 03/27/21 03:00 MAGNESIUM [CHEM] Q8H Blood Pressure [OM.PC] Q30M Deep Tendon Reflexes [WOMSER] Q2H 03/27/21 03:30 Blood Pressure [OM.PC] Q30M 03/27/21 04:00 Blood Pressure [OM.PC] Q30M 03/27/21 04:30 Blood Pressure [OM.PC] Q30M 03/27/21 05:00 Blood Pressure [OM.PC] Q30M Deep Tendon Reflexes [WOMSER] Q2H 03/27/21 05:30 Blood Pressure [OM.PC] Q30M 03/27/21 06:00 Blood Pressure [OM.PC] Q30M 03/27/21 06:30 Blood Pressure [OM.PC] Q30M 03/27/21 07:00 CBC W/O DIFF,HEMOGRAM [HEME] Routine Blood Pressure [OM.PC] Q30M Deep Tendon Reflexes [WOMSER] Q2H 03/27/21 Breakfast Regular Diet [DIET] 03/27/21 07:30 Blood Pressure [OM.PC] Q30M 03/27/21 08:00 Ferrous Sulfate 325 mg PO WITHBREAKFAST Blood Pressure [OM.PC] Q30M 03/27/21 08:30 Blood Pressure [OM.PC] Q30M 03/27/21 09:00 Vit with Ca/FA/Iron [ Plus Iron] 1 each PO DAILY Blood Pressure [OM.PC] Q30M Deep Tendon Reflexes [WOMSER] Q2H 03/27/21 09:30 Blood Pressure [OM.PC] Q30M 03/27/21 10:00 Blood Pressure [OM.PC] Q30M 03/27/21 10:30 Blood Pressure [OM.PC] Q30M 03/27/21 11:00 MAGNESIUM [CHEM] Q8H Blood Pressure [OM.PC] Q30M Deep Tendon Reflexes [WOMSER] Q2H 03/27/21 11:30 Blood Pressure [OM.PC] Q30M 03/27/21 12:00 Blood Pressure [OM.PC] Q30M 03/27/21 12:30 Blood Pressure [OM.PC] Q30M 03/27/21 13:00 Blood Pressure [OM.PC] Q30M Deep Tendon Reflexes [WOMSER] Q2H 03/27/21 13:30 Blood Pressure [OM.PC] Q30M 03/27/21 14:00 Blood Pressure [OM.PC] Q30M 03/27/21 14:30 Blood Pressure [OM.PC] Q30M 03/27/21 15:00 Blood Pressure [OM.PC] Q30M Deep Tendon Reflexes [WOMSER] Q2H 03/27/21 15:30 Blood Pressure [OM.PC] Q30M 03/27/21 16:00 Blood Pressure [OM.PC] Q30M 03/27/21 16:30 Blood Pressure [OM.PC] Q30M 03/27/21 17:00 Blood Pressure [OM.PC] Q30M Deep Tendon Reflexes [WOMSER] Q2H 03/27/21 17:30 Blood Pressure [OM.PC] Q30M 03/27/21 18:00 Blood Pressure [OM.PC] Q30M 03/27/21 18:01 RED BLOOD CELLS LP [BBK] Routine TYPE AND SCREEN [BBK] Routine 03/27/21 18:30 Blood Pressure [OM.PC] Q30M 03/27/21 19:00 MAGNESIUM [CHEM] Q8H Blood Pressure [OM.PC] Q30M Deep Tendon Reflexes [WOMSER] Q2H - Assessment Assessment:: 25-year-old now , s/p VAVD and manual removal of placenta at 40w3d - Plan Plan:: 1. Initiate routine orders 2. Continue magnesium sulfate for 24 hours after delivery. Continue magnesium levels every 8 hours. 3. 2 grams IV Ancef for infection prophylaxis after multiple manual explorations of uterus 4. Check CBC 6 hours after delivery due to hemorrhage. Restart oral iron. Type and screen ordered 5. Anticipate discharge on 03/29/2021 Izzy Zimmerman MD
[2021-03-27] MEDS: Magnesium Sulfate/Water 20 GM/500 ML BAG IV SCH ×2 (05:06→15:13)
[2021-03-27] MEDS: Ibuprofen 800 MG Tab PO PRN ×3 (05:07→23:47)
[2021-03-27] MEDS: Acetaminophen 325 MG Tab PO PRN ×3 (05:08→20:10)
[2021-03-27] MEDS ORDERED: Witch Hazel Medicated Pads 100/Jar TOP PRN (06:02)
[2021-03-27] MEDS: Prenatal Multivitamin with Calcium/Folic Acid/Iron Tab PO SCH (09:05)
[2021-03-27] MEDS: Docusate Sodium 100 MG Cap PO PRN ×2 (09:05→20:10)
[2021-03-27] MEDS: Ferrous Sulfate 325 MG Tab PO SCH (09:05)
[2021-03-27] MEDS: Lactated Ringers 1,000 ML IV SCH (15:16)
[2021-03-27] MEDS: Labetalol 100 MG Tab PO SCH ×2 (21:03→21:33)
--- NOTE | 2021-03-28 08:32 | PCM.PNPP ---
- General Info Date of Service: 03/28/21 Admission Dx/Problem (Free Text): Spontaneous term labor Pre-eclampsia with severe features Subjective Update: Patient is feeling better since stopping the magnesium drip at 0100. She does report a new onset headache this morning. She denies dizziness, fever, chills, nausea, vomiting, chest pain, difficulty breathing, upper abdominal pain, weakness, paraesthesias. She has a quevedo catheter in place. Has not ambulated. Tolerating PO. Lochia is decreasing. Her pain is being controlled. Functional Status: Reports: Pain Controlled, Tolerating Diet, Urinating - Review of Systems General: Reports: No Symptoms HEENT: Reports: No Symptoms Pulmonary: Reports: No Symptoms Cardiovascular: Reports: No Symptoms Gastrointestinal: Reports: No Symptoms Skin: Reports: No Symptoms Neurological: Reports: Headache. Denies: Dizziness, Numbness, Tingling, Weakness - General Info Date of Service: 03/28/21 - Patient Data Vital Signs - Most Recent: Last Vital Signs Temp 99.3 F 03/28/21 08:00 Pulse 90 03/28/21 08:00 Resp 18 03/28/21 08:00 BP 138/84 03/28/21 08:00 Pulse Ox 97 03/28/21 08:00 Weight - Most Recent: 152 lb I&O - Last 24 Hours: Intake & Output 03/27/21 03/28/21 03/28/21 22:59 06:59 14:59 Output Total 2000 3000 Balance -2000 -3000 Lab Results - Last 24 Hours: Laboratory Results - last 24 hr 03/27/21 03/27/21 03/28/21 Range/Units 11:28 19:35 06:15 WBC 9.7 (5.0-10.0) 10^3/uL RBC 2.20 L (4.2-5.4) 10^6/uL Hgb 6.9 L D (12.0-16.0) g/dL Hct 21.2 L (37.0-47.0) % MCV 96.4 (80-100) fL MCH 31.4 (27.0-34.0) pg MCHC 32.5 L (33.0-35.0) g/dL Plt Count 146 L (150-450) 10^3/uL BUN (7-18) mg/dL Creatinine (0.55-1.02) mg/dL Est Cr Clr Drug Dosing mL/min Estimated GFR (MDRD) Uric Acid (2.6-6.0) mg/dL Magnesium 5.6 H 5.3 H (1.8-2.4) mg/dL AST (15-37) U/L ALT (14-59) U/L Lactate Dehydrogenase (81-234) U/L Urine Color (YELLOW) Urine Appearance (CLEAR) Urine pH (5.0-9.0) Ur Specific [place] (1.005-1.030) Urine Protein (NEGATIVE) Urine Glucose (UA) (NEGATIVE) Urine Ketones (NEGATIVE) Urine Occult Blood (NEGATIVE) Urine Nitrite (NEGATIVE) Urine Bilirubin (NEGATIVE) Urine Urobilinogen (0.2-1.0) mg/dL Ur Leukocyte Esterase (NEGATIVE) 03/28/21 03/28/21 03/28/21 Range/Units 06:15 06:15 07:52 WBC (5.0-10.0) 10^3/uL RBC (4.2-5.4) 10^6/uL Hgb (12.0-16.0) g/dL Hct (37.0-47.0) % MCV (80-100) fL MCH (27.0-34.0) pg MCHC (33.0-35.0) g/dL Plt Count (150-450) 10^3/uL BUN 7 (7-18) mg/dL Creatinine 0.64 (0.55-1.02) mg/dL Est Cr Clr Drug Dosing 118.81 mL/min Estimated GFR (MDRD) > 60 Uric Acid 5.2 (2.6-6.0) mg/dL Magnesium (1.8-2.4) mg/dL AST 36 (15-37) U/L ALT 22 (14-59) U/L Lactate Dehydrogenase 281 H (81-234) U/L Urine Color Yellow (YELLOW) Urine Appearance Slightly cloudy (CLEAR) Urine pH 7.5 (5.0-9.0) Ur Specific [place] 1.015 (1.005-1.030) Urine Protein Negative (NEGATIVE) Urine Glucose (UA) Negative (NEGATIVE) Urine Ketones Negative (NEGATIVE) Urine Occult Blood Trace-lysed H (NEGATIVE) Urine Nitrite Negative (NEGATIVE) Urine Bilirubin Negative (NEGATIVE) Urine Urobilinogen 0.2 (0.2-1.0) mg/dL Ur Leukocyte Esterase Trace H (NEGATIVE) Med Orders - Current: Current Medications Acetaminophen (Acetaminophen 325 Mg Tab) 650 mg PO Q4H PRN PRN Reason: Pain (Mild 1-3) and fever Last Admin: 03/27/21 20:10 Dose: 650 mg Documented by: Benzocaine/Menthol (Benzocaine/Menthol 20%-0.5% [place] 56 Gm Canister) 0 gm TOP Q4H PRN PRN Reason: Perineal comfort measures Last Admin: 03/27/21 05:07 Dose: 1 spray Documented by: Carboprost Tromethamine (Carboprost Tromethamine 250 Mcg/1 Ml Amp) 250 mcg IM ASDIRECTED PRN PRN Reason: HEMORRHAGE Docusate Sodium (Docusate Sodium 100 Mg Cap) 100 mg PO BID PRN PRN Reason: Constipation Last Admin: 03/27/21 20:10 Dose: 100 mg Documented by: Ferrous Sulfate (Ferrous Sulfate 325 Mg Tab) [facility] Last Admin: 03/27/21 09:05 Dose: 325 mg Documented by: Lactated Ringer's (Ringers, Lactated) 1,000 mls @ 125 mls/hr IV ASDIRECTED [facility] Last Admin: 03/27/21 15:16 Dose: 125 mls/hr Documented by: Tranexamic Acid 1,000 mg/ (Sodium Chloride) 110 mls @ 660 mls/hr IV ONETIME PRN PRN Reason: Bleeding Last Admin: 03/27/21 00:55 Dose: 660 mls/hr Documented by: Oxytocin/Sodium Chloride (Pitocin In Ns 30 Unit/500 Ml) 30 unit in 500 mls @ 2 mls/hr IV TITRATE [facility]; Protocol Last Admin: 03/27/21 01:30 Dose: 125 munits/min, 125 mls/hr Documented by: Magnesium Sulfate (Magnesium Sulfate In Water 20 Gm/500 Ml) 20 gm in 500 mls @ 50 mls/hr IV ASDIRECTED [facility] Last Admin: 03/27/21 15:13 Dose: 50 mls/hr Documented by: Ibuprofen (Ibuprofen 800 Mg Tab) 800 mg PO Q8H PRN PRN Reason: Pain Last Admin: 03/27/21 23:47 Dose: 800 mg Documented by: Labetalol HCl (Labetalol 100 Mg Tab) 200 mg PO BID [facility] Last Admin: 03/27/21 21:33 Dose: Not Given Documented by: Methylergonovine Maleate (Methylergonovine 0.2 Mg/1 Ml Amp) 0.2 mg IM ASDIRECTED PRN PRN Reason: Hemorrhage Misoprostol (Misoprostol 400 Mcg (4 X 100 Mcg Tab)) 800 mcg RECTAL ASDIRECTED PRN PRN Reason: Hemorrhage Ondansetron HCl (Ondansetron 4 Mg/2 Ml Sdv) 4 mg IVPUSH Q4H PRN PRN Reason: Nausea/Vomiting Oxytocin (Oxytocin 10 Units/1 Ml Sdv) 10 unit IM ONETIME PRN PRN Reason: Bleeding Prenat Multivit/[place]/Iron/Folic Ac ( Multivitamin With Calcium/Folic Acid/Iron Tab) 1 each PO DAILY [facility] Last Admin: 03/27/21 09:05 Dose: 1 each Documented by: Simethicone (Simethicone 80 Mg Tab.Chew) 80 mg PO Q4H PRN PRN Reason: Gas Sodium Chloride (Sodium Chloride 0.9% 10 Ml Syringe) 10 ml FLUSH ASDIRECTED PRN PRN Reason: Keep Vein Open Witch Kathleen (Witch Kathleen Medicated Pads 100/Jar) 1 pad TOP ASDIRECTED PRN PRN Reason: Perineal Comfort Measure Last Admin: 03/27/21 09:06 Dose: 1 pad Documented by: Discontinued Medications Butorphanol Tartrate (Butorphanol 2 Mg/Ml Sdv) 0.5 mg IVPUSH Q3H PRN PRN Reason: Pain Epinephrine HCl (Epinephrine 1 Mg/1 Ml Amp) Confirm Administered Dose 1 mg .ROUTE .STK-MED ONE Stop: 03/26/21 19:36 Last Admin: 03/27/21 08:58 Dose: Not Given Documented by: Fentanyl (Fentanyl 100 Mcg/2 Ml Sdv) 100 mcg IVPUSH Q1H PRN PRN Reason: Pain (moderate 4-6) Fentanyl (Fentanyl 100 Mcg/2 Ml Sdv) Confirm Administered Dose 100 mcg .ROUTE .STK-MED ONE Stop: 03/26/21 19:35 Last Admin: 03/27/21 08:58 Dose: Not Given Documented by: Lactated Ringer's (Ringers, Lactated) 1,000 mls @ 999 mls/hr IV BOLUS ONE Stop: 03/26/21 19:01 Last Admin: 03/26/21 20:10 Dose: 50 mls/hr Documented by: Magnesium Sulfate (Magnesium Sulfate In Water 4 Gm/100 Ml) 4 gm in 100 mls @ 300 mls/hr IV ONETIME ONE Stop: 03/26/21 19:12 Last Admin: 03/26/21 20:20 Dose: Not Given Documented by: Magnesium Sulfate (Magnesium Sulfate In Water 4 Gm/100 Ml) Confirm Administered Dose 4 gm in 100 mls @ as directed .ROUTE .STK-MED ONE Stop: 03/26/21 19:06 Last Admin: 03/26/21 19:12 Dose: 300 mls/hr Documented by: Cefazolin Sodium 2 gm/ Sodium (Chloride) 50 mls @ 100 mls/hr IV ONETIME STA Stop: 03/27/21 02:08 Last Admin: 03/27/21 02:27 Dose: 100 mls/hr Documented by: Lidocaine HCl (Lidocaine 1% 30 Ml Sdv) 30 ml INJECT ASDIRECTED PRN PRN Reason: Perineal Repair Morphine Sulfate (Morphine 2 Mg/Ml Syringe) Confirm Administered Dose 2 mg .ROUTE .STK-MED ONE Stop: 03/27/21 00:56 Last Admin: 03/27/21 00:57 Dose: 2 mg Documented by: Nalbuphine HCl (Nalbuphine 10 Mg/1 Ml Vial) 20 mg IM Q3H PRN PRN Reason: Pain Last Admin: 03/26/21 19:26 Dose: 20 mg Documented by: Nalbuphine HCl (Nalbuphine 10 Mg/1 Ml Vial) 10 mg IV Q3H PRN PRN Reason: Pain Sodium Bicarbonate (Sodium Bicarbonate 4.2% 2.5 Meq/5 Ml Sdv) Confirm Administered Dose 2.5 meq .ROUTE .STK-MED ONE Stop: 03/26/21 19:36 Last Admin: 03/27/21 08:58 Dose: Not Given Documented by: Sufentanil Citrate (Sufentanil 50 Mcg/1 Ml Amp) Confirm Administered Dose 50 mcg .ROUTE .STK-MED ONE Stop: 03/26/21 19:36 Last Admin: 03/27/21 08:58 Dose: Not Given Documented by: - Interaction Infant Disposition, : [place] at Bedside Infant Interaction: Holding Infant Feeding: Continues to Breastfeed Support Person: - Recovery Exam Fundal Tone: Firm Fundal Level: 2 Fingerbreadths Below Umbilicus Fundal Placement: Midline Lochia Amount: Moderate Lochia Color: Rubra/Red Perineum Description: Edematous Episiotomy/Laceration: Approximated Bladder Status: Nonpalpable Urinary Elimination: Indwelling Catheter - Exam General: Alert, Oriented HEENT: Pupils Equal Lungs: Clear to Auscultation, Normal Respiratory Effort Cardiovascular: Regular Rate, Regular Rhythm GI/Abdominal Exam: Normal Bowel Sounds, Soft, Non-Tender, No Organomegaly, No Distention, No Abnormal Bruit, No Mass, Pelvis Stable Extremities: Normal Inspection, Normal Range of Motion, Non-Tender, No Pedal Edema, Normal Capillary Refill Skin: Warm, Dry, Intact Neurological: No New Focal Deficit (Babinski negative. [place] strength equal. CN 2-12 grossly intact) Psy/Mental Status: Alert, Normal Affect, Normal Mood - Problem List & Annotations (1) Anemia affecting SNOMED Code(s): 59350478 Code(s): O99.019 - ANEMIA COMPLICATING , UNSPECIFIED TRIMESTER Status: Acute Current Visit: Yes (2) hemorrhage SNOMED Code(s): 47788938 Code(s): O72.1 - OTHER IMMEDIATE HEMORRHAGE Status: Acute Current Visit: Yes (3) care in third trimester SNOMED Code(s): 494249447, 55905141, 86513278, 683182406, 690750004 Code(s): Z34.93 - ENCNTR FOR SUPRVSN OF NORMAL PREG, UNSP, THIRD TRIMESTER Status: Acute Current Visit: Yes (4) Retained placenta or membranes SNOMED Code(s): 403872423 Code(s): O73.1 - RETAINED PORTIONS OF PLACENTA AND MEMBRANES, W/O HEMORRHAGE Status: Acute Current Visit: Yes (5) Severe pre-eclampsia SNOMED Code(s): 99881805 Code(s): O14.10 - SEVERE PRE-ECLAMPSIA, UNSPECIFIED TRIMESTER Status: Acute Current Visit: Yes (6) Vacuum-assisted vaginal delivery SNOMED Code(s): 70150325100235964 Code(s): Z37.9 - OUTCOME OF DELIVERY, UNSPECIFIED Status: Acute Current Visit: Yes (7) Anxiety SNOMED Code(s): 72242882 Code(s): F41.9 - ANXIETY DISORDER, UNSPECIFIED Status: Acute Current Visit: No - Problem List Review Problem List Initiated/Reviewed/Updated: Yes - My Orders Last 24 Hours: My Active Orders 03/28/21 07:52 PROTEIN/CREATININE RATIO,URINE [URCHEM] Routine - Assessment Assessment:: 25-year-old now , s/p VAVD and manual removal of placenta at 40w3d. Hemoglobin has dropped to 6.9, down from 8.5 yesterday. See active problem list. - Plan Plan:: 1. Initiate routine orders 2. Magnesium sulfate discontinued since 0100 today. If headache worsens or blood pressures increase to >160 SBP or >90 DBP, may consider restarting or starting labetalol 200 mg TID. 3. 2 grams IV Ancef for infection prophylaxis after multiple manual explorations of uterus. Continue to monitor for signs of infection 4. Will transfuse 2 unit pRBC. Check CBC 6 hours after transfusion. Continue oral iron. 5. Bedrest orders. Quevedo catheter in place. May consider removal if patient does well after transfusion. 6. Anticipate discharge on 03/29/2021 BOB Santiago
[2021-03-28] MEDS: Ferrous Sulfate 325 MG Tab PO SCH (08:33)
[2021-03-28] MEDS: Labetalol 100 MG Tab PO SCH ×3 (08:33→21:55)
[2021-03-28] MEDS: Prenatal Multivitamin with Calcium/Folic Acid/Iron Tab PO SCH (08:33)
[2021-03-28] MEDS: Ibuprofen 800 MG Tab PO PRN (16:49)
[2021-03-28] MEDS: Docusate Sodium 100 MG Cap PO PRN (16:50)
[2021-03-28] MEDS ORDERED: hydrALAZINE 20 MG/ML SDV IVPUSH ONE (17:03)
[2021-03-28] MEDS ORDERED: Labetalol 100 MG Tab PO ONE (22:10)
[2021-03-29] MEDS: Ibuprofen 800 MG Tab PO PRN ×2 (01:06→10:58)
[2021-03-29] MEDS: Labetalol 100 MG Tab PO SCH ×2 (05:15→10:54)
[2021-03-29] MEDS: Prenatal Multivitamin with Calcium/Folic Acid/Iron Tab PO SCH (10:59)
[2021-03-29] MEDS: Ferrous Sulfate 325 MG Tab PO SCH (11:01)
--- NOTE | 2021-03-29 12:55 | PCM.DCSUM1 ---
Discharge Summary - Hospital Course Free Text/Narrative:: Patient is a 25 year old female G1, now P1001 who presented in spontaneous active labor at 40 weeks 2 days gestation based upon ultrasound on 10/27/2020. She had excellent care. At her last clinic visit, her BPs were at goal and urine screen normal. Upon presentation to the labor and delivery unit, she was having SBPs in 180s and DBPs in 100s with elevated protein creatinine ration. Diagnosis of preeclampsia with severe features was made and magnesium was started per protocol for seizure prophylaxis. She received an intrathecal for pain management. Labor progressed. Delivery was complicated by vacuum assisted delivery, left lower episiotomy, retained placental products, and post hemorrhage. Hemoglobin PPD#1 was 6.9. She received 2 units of pRBCs. Hbg upon discharge 9.7. BPs remained elevated, continued labetalol 400 mg TID. - Discharge Data Discharge Date: 03/29/21 Discharge Disposition: Home, Self-Care 01 Condition: Good - Referral to Home Health Primary Care Physician: Rand Zimmerman MD - Discharge Diagnosis/Problem(s) (1) Anemia affecting SNOMED Code(s): 23789115 ICD Code: O99.019 - ANEMIA COMPLICATING , UNSPECIFIED TRIMESTER Status: Acute (2) hemorrhage SNOMED Code(s): 68062084 ICD Code: O72.1 - OTHER IMMEDIATE HEMORRHAGE Status: Acute (3) Retained placenta or membranes SNOMED Code(s): 176735279 ICD Code: O73.1 - RETAINED PORTIONS OF PLACENTA AND MEMBRANES, W/O HEMORRHAGE Status: Acute (4) Severe pre-eclampsia SNOMED Code(s): 74761657 ICD Code: O14.10 - SEVERE PRE-ECLAMPSIA, UNSPECIFIED TRIMESTER Status: Acute Qualifiers: Trimester: third trimester Qualified Code(s): O14.13 - Severe pre- eclampsia, third trimester (5) Vacuum-assisted vaginal delivery SNOMED Code(s): 90501254991572433 ICD Code: Z37.9 - OUTCOME OF DELIVERY, UNSPECIFIED Status: Acute (6) Anxiety SNOMED Code(s): 36776543 ICD Code: F41.9 - ANXIETY DISORDER, UNSPECIFIED Status: Chronic - Patient Summary/Data Consults: Consultations 03/27/21 02:20 Consult to Medical Historian [CONS] Routine - Patient Instructions Diet: Usual Diet as Tolerated Activity: As Tolerated Showering/Bathing: May Shower Notify Provider of: Fever, Increased Pain, Swelling and Redness, Drainage, Nausea and/or Vomiting - Discharge Plan *PRESCRIPTION DRUG MONITORING PROGRAM REVIEWED*: Not Applicable *COPY OF PRESCRIPTION DRUG MONITORING REPORT IN PATIENT JD: Not Applicable Prescriptions/Med Rec: Labetalol [Normodyne] 400 mg PO TID #120 tablet Home Medications: Home Meds Ferrous Sulfate [Iron] 325 mg PO BID 03/26/21 [History] #103/Iron Fumarate/Fa [ ] 1 tab PO DAILY 03/26/21 [History] Acetaminophen [Tylenol] 650 mg PO Q4H PRN tablet 03/29/21 [Rx] Ibuprofen [Motrin] 800 mg PO Q8H PRN tablet 03/29/21 [Rx] Labetalol [Normodyne] 400 mg PO TID #120 tablet 03/29/21 [Rx] Patient Handouts: Depression, Baby Blues, Hypertension, Care After Vaginal Delivery, Anxiety Referrals: Izzy Zimmerman MD [Primary Care Provider] - 03/31/21 10:00 am (Appointment has been made for mom and baby at 10am on , the , with Dr. Zimmerman Come to the clinic at 10am. Bring [facility].) - Discharge Summary/Plan Comment DC Time >30 min.: Yes Discharge Summary/Plan Comment: Continue labetalol 400 mg BID Continue vitamin throughout the duration of Continue ferrous sulfate 325 mg BID Monitor signs and symptoms of elevated blood pressure and preeclampsia including but not limited to headaches, visual changes, abdominal pain, weakness, paraesthesias. Continue to monitor bleeding and signs/symptoms of anemia Continue adequate hydration Continue breast feeding Follow up for 6 week post visit or sooner if needed - General Info Admission Dx/Problem (Free Text: Spontaneous term labor Pre-eclampsia with severe features Subjective Update: Patient is feeling better since receiving two units pRBCs. She reports her headache has lessened. She denies dizziness, fever, chills, nausea, vomiting, chest pain, difficulty breathing, upper abdominal pain, weakness, paraesthesias. Ambulating and voiding appropriately. Tolerating PO. Lochia is decreasing. Her pain is being controlled. Functional Status: Reports: Pain Controlled, Tolerating Diet, Ambulating, Urinating - Review of Systems General: Reports: No Symptoms HEENT: Reports: Headaches, Sinus Congestion. Denies: Visual Changes Pulmonary: Reports: No Symptoms Cardiovascular: Reports: No Symptoms Gastrointestinal: Reports: No Symptoms Genitourinary: Reports: No Symptoms Musculoskeletal: Reports: No Symptoms Skin: Reports: No Symptoms Neurological: Reports: No Symptoms - Patient Data Vitals - Most Recent: Last Vital Signs Temp 97.9 F 03/29/21 08:00 Pulse 68 03/29/21 11:00 Resp 16 03/29/21 08:00 BP 136/88 03/29/21 11:00 Pulse Ox 99 03/28/21 20:00 Weight - Most Recent: 152 lb Lab Results - Last 24 hrs: Laboratory Results - last 24 hr 03/27/21 03/28/21 03/29/21 Range/Units 18:01 21:00 05:55 WBC 12.4 H 10.3 H (5.0-10.0) 10^3/uL RBC 3.11 L 3.17 L (4.2-5.4) 10^6/uL Hgb 9.6 L D 9.7 L (12.0-16.0) g/dL Hct 29.2 L 29.6 L (37.0-47.0) % MCV 93.9 93.4 (80-100) fL MCH 30.9 30.6 (27.0-34.0) pg MCHC 32.9 L 32.8 L (33.0-35.0) g/dL Plt Count 156 158 (150-450) 10^3/uL Crossmatch See Detail Med Orders - Current: Current Medications Discontinued Medications Acetaminophen (Acetaminophen 325 Mg Tab) 650 mg PO Q4H PRN PRN Reason: Pain (Mild 1-3) and fever Last Admin: 03/27/21 20:10 Dose: 650 mg Documented by: Benzocaine/Menthol (Benzocaine/Menthol 20%-0.5% [place] 56 Gm Canister) 0 gm TOP Q4H PRN PRN Reason: Perineal comfort measures Last Admin: 03/27/21 05:07 Dose: 1 spray Documented by: Butorphanol Tartrate (Butorphanol 2 Mg/Ml Sdv) 0.5 mg IVPUSH Q3H PRN PRN Reason: Pain Carboprost Tromethamine (Carboprost Tromethamine 250 Mcg/1 Ml Amp) 250 mcg IM ASDIRECTED PRN PRN Reason: HEMORRHAGE Docusate Sodium (Docusate Sodium 100 Mg Cap) 100 mg PO BID PRN PRN Reason: Constipation Last Admin: 03/28/21 16:50 Dose: 100 mg Documented by: Epinephrine HCl (Epinephrine 1 Mg/1 Ml Amp) Confirm Administered Dose 1 mg .ROUTE .STK-MED ONE Stop: 03/26/21 19:36 Last Admin: 03/27/21 08:58 Dose: Not Given Documented by: Epinephrine HCl (Epinephrine 1 Mg/1 Ml Amp) 0.1 mg .XX .STK-MED ONE Stop: 03/26/21 19:01 Fentanyl (Fentanyl 100 Mcg/2 Ml Sdv) 100 mcg IVPUSH Q1H PRN PRN Reason: Pain (moderate 4-6) Fentanyl (Fentanyl 100 Mcg/2 Ml Sdv) Confirm Administered Dose 100 mcg .ROUTE .STK-MED ONE Stop: 03/26/21 19:35 Last Admin: 03/27/21 08:58 Dose: Not Given Documented by: Fentanyl (Fentanyl 100 Mcg/2 Ml Sdv) 30 mcg ITHECAL .STK-MED ONE Stop: 03/26/21 19:01 Ferrous Sulfate (Ferrous Sulfate 325 Mg Tab) [facility] Last Admin: 03/29/21 11:01 Dose: 325 mg Documented by: Hydralazine HCl (Hydralazine 20 Mg/Ml Sdv) 10 mg IVPUSH ONETIME ONE Stop: 03/28/21 17:04 Last Admin: 03/28/21 17:26 Dose: 10 mg Documented by: Lactated Ringer's (Ringers, Lactated) 1,000 mls @ 999 mls/hr IV BOLUS ONE Stop: 03/26/21 19:01 Last Admin: 03/26/21 20:10 Dose: 50 mls/hr Documented by: Lactated Ringer's (Ringers, Lactated) 1,000 mls @ 125 mls/hr IV ASDIRECTED [facility] Last Admin: 03/27/21 15:16 Dose: 125 mls/hr Documented by: Tranexamic Acid 1,000 mg/ (Sodium Chloride) 110 mls @ 660 mls/hr IV ONETIME PRN PRN Reason: Bleeding Last Admin: 03/27/21 00:55 Dose: 660 mls/hr Documented by: Oxytocin/Sodium Chloride (Pitocin In Ns 30 Unit/500 Ml) 30 unit in 500 mls @ 2 mls/hr IV TITRATE [facility]; Protocol Last Admin: 03/27/21 01:30 Dose: 125 munits/min, 125 mls/hr Documented by: Magnesium Sulfate (Magnesium Sulfate In Water 20 Gm/500 Ml) 20 gm in 500 mls @ 50 mls/hr IV ASDIRECTED [facility] Last Admin: 03/27/21 15:13 Dose: 50 mls/hr Documented by: Magnesium Sulfate (Magnesium Sulfate In Water 4 Gm/100 Ml) 4 gm in 100 mls @ 300 mls/hr IV ONETIME ONE Stop: 03/26/21 19:12 Last Admin: 03/26/21 20:20 Dose: Not Given Documented by: Magnesium Sulfate (Magnesium Sulfate In Water 4 Gm/100 Ml) Confirm Administered Dose 4 gm in 100 mls @ as directed .ROUTE .STK-MED ONE Stop: 03/26/21 19:06 Last Admin: 03/26/21 19:12 Dose: 300 mls/hr Documented by: Cefazolin Sodium 2 gm/ Sodium (Chloride) 50 mls @ 100 mls/hr IV ONETIME STA Stop: 03/27/21 02:08 Last Admin: 03/27/21 02:27 Dose: 100 mls/hr Documented by: Ibuprofen (Ibuprofen 800 Mg Tab) 800 mg PO Q8H PRN PRN Reason: Pain Last Admin: 03/29/21 10:58 Dose: 800 mg Documented by: Labetalol HCl (Labetalol 100 Mg Tab) 200 mg PO BID [facility] Last Admin: 03/28/21 08:33 Dose: 200 mg Documented by: Labetalol HCl (Labetalol 100 Mg Tab) 200 mg PO TID@0600,1400,2200 [facility] Last Admin: 03/28/21 21:55 Dose: 200 mg Documented by: Labetalol HCl (Labetalol 100 Mg Tab) 400 mg PO TID [facility] Last Admin: 03/29/21 10:54 Dose: Not Given Documented by: Labetalol HCl (Labetalol 100 Mg Tab) 200 mg PO ONETIME ONE Stop: 03/28/21 22:11 Last Admin: 03/28/21 22:22 Dose: 200 mg Documented by: Lidocaine HCl (Lidocaine 1% 30 Ml Sdv) 30 ml INJECT ASDIRECTED PRN PRN Reason: Perineal Repair Methylergonovine Maleate (Methylergonovine 0.2 Mg/1 Ml Amp) 0.2 mg IM ASDIRECTED PRN PRN Reason: Hemorrhage Misoprostol (Misoprostol 400 Mcg (4 X 100 Mcg Tab)) 800 mcg RECTAL ASDIRECTED PRN PRN Reason: Hemorrhage Morphine Sulfate (Morphine 2 Mg/Ml Syringe) Confirm Administered Dose 2 mg .ROUTE .STK-MED ONE Stop: 03/27/21 00:56 Last Admin: 03/27/21 00:57 Dose: 2 mg Documented by: Nalbuphine HCl (Nalbuphine 10 Mg/1 Ml Vial) 20 mg IM Q3H PRN PRN Reason: Pain Last Admin: 03/26/21 19:26 Dose: 20 mg Documented by: Nalbuphine HCl (Nalbuphine 10 Mg/1 Ml Vial) 10 mg IV Q3H PRN PRN Reason: Pain Ondansetron HCl (Ondansetron 4 Mg/2 Ml Sdv) 4 mg IVPUSH Q4H PRN PRN Reason: Nausea/Vomiting Oxytocin (Oxytocin 10 Units/1 Ml Sdv) 10 unit IM ONETIME PRN PRN Reason: Bleeding Prenat Multivit/[employer]/Iron/Folic Ac ( Multivitamin With Calcium/Folic Acid/Iron Tab) 1 each PO DAILY [facility] Last Admin: 03/29/21 10:59 Dose: 1 each Documented by: Simethicone (Simethicone 80 Mg Tab.Chew) 80 mg PO Q4H PRN PRN Reason: Gas Sodium Bicarbonate (Sodium Bicarbonate 4.2% 2.5 Meq/5 Ml Sdv) Confirm Administered Dose 2.5 meq .ROUTE .STK-MED ONE Stop: 03/26/21 19:36 Last Admin: 03/27/21 08:58 Dose: Not Given Documented by: Sodium Bicarbonate (Sodium Bicarbonate 4.2% 2.5 Meq/5 Ml Sdv) 0.5 meq .XX .STK- MED ONE Stop: 03/26/21 19:01 Sodium Chloride (Sodium Chloride 0.9% 10 Ml Syringe) 10 ml FLUSH ASDIRECTED PRN PRN Reason: Keep Vein Open Sodium Chloride (Sodium Chloride 0.9% 20 Ml Sdv) 0.4 ml .XX .STK-MED ONE Stop: 03/26/21 19:01 Sufentanil Citrate (Sufentanil 50 Mcg/1 Ml Amp) Confirm Administered Dose 50 mcg .ROUTE .STK-MED ONE Stop: 03/26/21 19:36 Last Admin: 03/27/21 08:58 Dose: Not Given Documented by: Sufentanil Citrate (Sufentanil 50 Mcg/1 Ml Amp) 20 mcg ITHECAL .STK-MED ONE Stop: 03/26/21 19:01 Witbebe Albarranel (Witch Kathleen Medicated Pads 100/Jar) 1 pad TOP ASDIRECTED PRN PRN Reason: Perineal Comfort Measure Last Admin: 03/27/21 09:06 Dose: 1 pad Documented by: - Exam General: Reports: Alert, Oriented HEENT: Reports: Pupils Equal, Pupils Reactive, EOMI, Mucous Membr. Moist/[place] Neck: Reports: Supple Lungs: Reports: Clear to Auscultation, Normal Respiratory Effort Cardiovascular: Reports: Regular Rate, Regular Rhythm GI/Abdominal Exam: Normal Bowel Sounds, Soft, Non-Tender, No Organomegaly, No Distention, No Abnormal Bruit, No Mass, Pelvis Stable Extremities: Normal Inspection, Normal Range of Motion, Non-Tender, No Pedal Edema, Normal Capillary Refill Skin: Reports: Warm, Dry, Intact Neurological: Reports: No New Focal Deficit Psy/Mental Status: Reports: Alert, Normal Affect, Normal Mood
== END 2021-03-29 11:15 | disposition home or self-care (01) | DRG 560 ==
LOC: DL.OBCHECK 17:04 → DL.OB 18:01 → OBSVTOIN 18:01
PROVIDERS: ADMIT Family Medicine; ATTEND Family Medicine
PROC: 10D07Z6 Extraction of Products of Conception, Vacuum, Via Natural or Artificial Opening (ICD-10-PCS; principal; 2021-03-26)
PROC: 0KQM0ZZ Repair Perineum Muscle, Open Approach (ICD-10-PCS; 2021-03-26)
PROC: 3E0R3BZ Introduction of Anesthetic Agent into Spinal Canal, Percutaneous Approach (ICD-10-PCS; 2021-03-26)
PROC: 30233N1 Transfusion of Nonautologous Red Blood Cells into Peripheral Vein, Percutaneous Approach (ICD-10-PCS; 2021-03-28)
DX: O48.0 Post-term pregnancy (principal); O14.14 Severe pre-eclampsia complicating childbirth; Z3A.40 40 weeks gestation of pregnancy; Z37.0 Single live birth; O77.0 Labor and delivery complicated by meconium in amniotic fluid; O70.1 Second degree perineal laceration during delivery; O72.1 Other immediate postpartum hemorrhage; Z20.822 Contact with and (suspected) exposure to COVID-19
CPT/HCPCS: 01212; 01967; 36415; 36430; 51702; 59409; 81003; 82565; 82570; 83615; 83735; 84156; 84450; 84460; 84520; 84550; 85027; 86850; 86900; 86901; 86920; 86922; A9270-GY; J0171; J0360; J0690; J2270; J2300; J2590; J3010; J3475; J7120; P9016; U0002

== ENCOUNTER 2024-02-03 16:27 | Emergency (ER) | payer BC, OTHER ==
[2024-02-03] MEDS: Sodium Chloride 0.9% 10 ML Syringe FLUSH PRN (17:04)
[2024-02-03] MEDS: Sodium Chloride 0.9% 1,000 ML IV ONE ×2 (17:04→18:20)
[2024-02-03 17:32] LABS: HCG QUALITATIVE,SERUM NEGATIVE (NEGATIVE)
[2024-02-03 17:37] LABS: ANION GAP 18.1 mEq/L (7-13); BLOOD UREA NITROGEN,BUN 8 mg/dL (7-18); CALCIUM 9.1 mg/dL (8.5-10.1); CARBON DIOXIDE,CO2 24 mmol/L (21-32); CHLORIDE,CL 102 mmol/L (98-107); CREATININE 0.77 mg/dL (0.55-1.02); EST CRCL DRUG DOSING (CG) 95.47 mL/min; ESTIMATED GFR 106 mL/min (>=60); GLUCOSE RANDOM 89 mg/dL (70-99); MAGNESIUM 1.9 mg/dL (1.8-2.4); PHOSPHORUS 4.2 mg/dL (2.6-4.7); POTASSIUM,K 4.1 mmol/L (3.5-5.1); SODIUM,NA 140 mmol/L (136-145); T4 FREE 0.93 ng/dL (0.76-1.46); TSH ULTRASENSITIVE 3.32 uIU/mL (0.36-3.74)
[2024-02-03] MEDS: LORazepam 2 MG/ML SDV IVPUSH ONE (17:39)
[2024-02-03 17:47] LABS: BASOPHILS PERCENT AUTO 0.7 % (0.0-1.0); EOSINOPHILS PERCENT AUTO 0.7 % (1.0-3.0); LYMPHOCYTES PERCENT AUTO 17.4 % (20.5-50.1); MEAN CORPUSCULAR HEMOGLOBIN 30.9 pg (27.0-34.0); MEAN CORPUSCULAR HGB CONC 33.3 g/dL (33.0-35.0); MEAN CORPUSCULAR VOLUME 92.7 fL (80-100); MONOCYTES PERCENT AUTO 8.3 % (2-8); NEUTROPHILS PERCENT AUTO 72.9 % (42.2-75.2); PLATELET COUNT,PLT 431 10^3/uL (150-450); RED BLOOD CELL COUNT 4.53 10^6/uL (4.2-5.4); WHITE BLOOD CELL COUNT,WBC 7.2 10^3/uL (5.0-10.0)
[2024-02-03 18:31] LABS: APPEARANCE,URINE CLEAR (CLEAR); BILIRUBIN,URINE NEGATIVE (NEGATIVE); COLOR,URINE YELLOW (YELLOW); GLUCOSE,URINE NEGATIVE (NEGATIVE); KETONES,URINE 40 (NEGATIVE); LEUKOCYTE ESTERASE,URINE NEGATIVE (NEGATIVE); NITRITE,URINE NEGATIVE (NEGATIVE); OCCULT BLOOD,URINE SMALL (NEGATIVE); PROTEIN,URINE 30 (NEGATIVE); UROBILINOGEN,URINE 0.2 mg/dL (0.2-1.0)
[2024-02-03 18:39] LABS: AMPHETAMINES,URINE NEGATIVE (NEGATIVE); BARBITURATES,URINE NEGATIVE (NEGATIVE); BENZODIAZEPINE,URINE POSITIVE (NEGATIVE); MDMA (ECSTASY), URINE NEGATIVE (NEGATIVE); METHADONE,URINE NEGATIVE (NEGATIVE); METHAMPHETAMINES,URINE NEGATIVE (NEGATIVE); OPIATES,URINE NEGATIVE (NEGATIVE); OXYCODONE,URINE NEGATIVE (NEGATIVE); PHENCYCLIDINE,URINE NEGATIVE (NEGATIVE); TCA,URINE NEGATIVE (NEGATIVE)
[2024-02-03 18:42] LABS: BACTERIA,URINE FEW /HPF (0-FEW/HPF); EPITHELIAL CELLS,URINE FEW /HPF (NOT SEEN); MUCUS,URINE FEW /LPF (NOT SEEN); WBC,URINE 0-5 /HPF (0-5/HPF)
[2024-02-03] MEDS: Iopamidol 612 MG/ML 100 ML Bottle IVPUSH ONE (20:12)
== END 2024-02-03 21:50 | disposition home or self-care (01) ==
LOC: DL.ED 16:27
DX: F41.9 Anxiety disorder, unspecified (principal); Z79.899 Other long term (current) drug therapy; Z86.16 Personal history of COVID-19
CPT/HCPCS: 36415; 74177; 80048; 80305-QW; 81001; 83735; 84100; 84439; 84443; 84484; 84703; 85025; 85379; 93005; 96365; 96375; 99284-25; J2060; J3411; J3490; J7030; Q9967

== ENCOUNTER 2024-03-31 12:03 | Emergency (ER) | payer BC, OTHER ==
[2024-03-31] MEDS: LORazepam 2 MG/ML SDV IM ONE (12:30)
[2024-03-31] MEDS: hydrOXYzine HCl 25 MG Tab PO ONE ×2 (13:39→13:48)
[2024-03-31] MEDS: Propranolol 20 MG Tab PO ONE (13:48)
== END 2024-03-31 15:05 | disposition home or self-care (01) ==
LOC: DL.ED 12:03
DX: F41.0 Panic disorder [episodic paroxysmal anxiety] (principal); R00.0 Tachycardia, unspecified; Z86.16 Personal history of COVID-19; Z79.899 Other long term (current) drug therapy
CPT/HCPCS: 96372; 99283; A9270; J2060

== ENCOUNTER 2025-01-27 09:29 | Emergency (ER) | payer BC ==
[2025-01-27] MEDS: hydrOXYzine HCl 25 MG Tab PO ONE (09:49)
[2025-01-27] MEDS: ALPRAZolam 0.5 MG Tab PO ONE (09:49)
== END 2025-01-27 11:29 | disposition home or self-care (01) ==
LOC: DL.ED 09:29
DX: F41.0 Panic disorder [episodic paroxysmal anxiety] (principal); Z86.16 Personal history of COVID-19; Z79.899 Other long term (current) drug therapy
CPT/HCPCS: 99283; A9270